=== PATIENT | female | born 2005 | race Caucasian/White ===

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

== ENCOUNTER 2023-06-19 18:34 | Emergency (ER) | payer BC ==
[~2023-06-19] VITALS: Ht 160 cm; Wt 81.8 kg
[~2023-06-19 18:34] MED LIST: MECL-231 PO
[2023-06-19 18:46] VITALS: BP 129/71; PULSE 95; RESP 16; TEMP 98.2; O2SAT 100
--- NOTE | 2023-06-19 20:02 | NUR ---
XRAY AT BS
[2023-06-19 20:20] LABS: BILIRUBIN,URINE NEGATIVE (Neg); CLARITY,URINE SLIGHTLY CLOUDY (Clear); COLOR,URINE YELLOW (Yellow); GLUCOSE, URINE NEGATIVE (Neg); KETONES,URINE NEGATIVE (Neg); LEUKOCYTE ESTERASE ,URINE MODERATE (Neg); NITRITES, URINE NEGATIVE (Neg); OCCULT BLOOD,URINE TRACE-INTACT (Neg); PH,URINE 6.5 (4.8-8.0); PROTEIN,URINE NEGATIVE (Neg); UROBILINOGEN,URINE 0.2 E.U/dL (0.2-1.0)
[2023-06-19 20:25] LABS: UA COLLECTION TYPE CLN CATCH MIDSTREAM
[2023-06-19 20:26] LABS: BACTERIA,URINE 2+ /HPF (Neg); SQUAMOUS EPITHELIAL CELL,UR MANY /LPF (FEW)
[2023-06-19 20:28] LABS: AMORPHOUS URATES 1+
[2023-06-19 20:32] LABS: BASOPHILS % (AUTO) 0.1 % (0-1); EOSINOPHILS # (AUTO) 0.1 X10'3 (0-0.9); HEMOGLOBIN 14.4 g/dl (12.0-16.0); LYMPHOCYTES # (AUTO) 3.4 X10'3 (1.1-4.8); LYMPHOCYTES % (AUTO) 32.6 % (21-51); MEAN CORPUSCULAR HEMOGLOBIN 32.5 PG (27.0-31.0); MEAN CORPUSCULAR VOLUME 92.8 FL (78-98); MEAN PLATELET VOLUME 8.9 FL (7.4-10.4); MONOCYTES % (AUTO) 9.5 % (2-12); NEUTROPHILS # (AUTO) 5.9 X10'3 (1.8-7.7); NEUTROPHILS % (AUTO) 56.8 % (42-75); PLATELET COUNT 259 X10'3 (140-440); RED BLOOD COUNT 4.42 X10'6 (4.20-5.60); RED CELL DISTRIBUTION WIDTH 12.6 % (11.5-14.5); WHITE BLOOD COUNT 10.4 X10'3 (4.5-11.0)
[2023-06-19 20:43] LABS: HCG SERUM QL NEGATIVE
[2023-06-19 20:46] LABS: ALANINE AMINOTRANSFERASE 13 U/L (12-78); ALBUMIN 3.8 G/DL (3.4-5.0); ALBUMIN/GLOBULIN RATIO 1.1 (1.1-1.5); ALKALINE PHOSPHATASE 81 IU/L (20-180); ANION GAP 10 (8-16); ASPARTATE AMINO TRANSFERASE 15 U/L (10-37); BILIRUBIN,TOTAL 0.3 MG/DL (0.1-1.0); BLOOD UREA NITROGEN 14 MG/DL (7-18); BUN/CREATININE RATIO 17.3 (10.0-20.0); CHLORIDE 104 MMOL/L (99-107); CREATININE 0.81 MG/DL (0.40-0.90); GLUCOSE 103 MG/DL (70-104); POTASSIUM 3.7 MMOL/L (3.5-5.1); SODIUM 139 MMOL/L (135-145); TOTAL CARBON DIOXIDE 25.3 MMOL/L (24-32); TOTAL PROTEIN 7.3 G/DL (6.4-8.2); eCRCL 92 ML/MIN; eGFR > 90 ML/MIN
[2023-06-19 20:55] LABS: THYROID STIMULATING HORMONE 3.98 ulU/ml (0.34-4.50)
[2023-06-19] MEDS ORDERED: NITR100C6 PO (21:07)
[2023-06-19] MEDS ORDERED: LORA-268 PO (21:25)
== END 2023-06-19 21:28 | disposition home or self-care (01) ==
LOC: ER 18:35
DX: N39.0 Urinary tract infection, site not specified (principal); F41.9 Anxiety disorder, unspecified; Z79.899 Other long term (current) drug therapy
CPT/HCPCS: 36415; 71045; 80053; 81001; 84443; 84703; 85025; 99284

== ENCOUNTER 2023-08-30 15:31 | Emergency (ER) | payer BC ==
[~2023-08-30] VITALS: Ht 160 cm; Wt 87.5 kg
[~2023-08-30 15:31] MED LIST changes: +LORA-268 PO; +NITR100C6 PO
--- NOTE | 2023-08-30 15:52 | NUR ---
MSE COMPLETED BY YANNI PAK
[2023-08-30 16:28] LABS: BASOPHILS % (AUTO) 0.2 % (0-1); EOSINOPHILS # (AUTO) 0.1 X10'3 (0-0.9); EOSINOPHILS % (AUTO) 0.9 % (0-6); HEMATOCRIT 43.9 % (35.0-45.0); HEMOGLOBIN 15.2 g/dl (12.0-16.0); LYMPHOCYTES # (AUTO) 3.1 X10'3 (1.1-4.8); LYMPHOCYTES % (AUTO) 28.4 % (21-51); MEAN CORPUSCULAR HEMOGLOBIN 32.4 PG (27.0-31.0); MEAN CORPUSCULAR HGB CONC 34.7 g/dL (33.0-36.5); MEAN CORPUSCULAR VOLUME 93.4 FL (78-98); MEAN PLATELET VOLUME 8.9 FL (7.4-10.4); MONOCYTES # (AUTO) 0.9 X10'3 (0-0.9); MONOCYTES % (AUTO) 8.5 % (2-12); NEUTROPHILS # (AUTO) 6.7 X10'3 (1.8-7.7); PLATELET COUNT 308 X10'3 (140-440); RED CELL DISTRIBUTION WIDTH 12.4 % (11.5-14.5); WHITE BLOOD COUNT 10.7 X10'3 (4.5-11.0)
[2023-08-30 16:35] LABS: ALANINE AMINOTRANSFERASE 43 U/L (12-78); ALBUMIN/GLOBULIN RATIO 1.1 (1.1-1.5); ALKALINE PHOSPHATASE 102 IU/L (20-180); ANION GAP 11 (8-16); ASPARTATE AMINO TRANSFERASE 28 U/L (10-37); BILIRUBIN,TOTAL 0.3 MG/DL (0.1-1.0); BLOOD UREA NITROGEN 14 MG/DL (7-18); BUN/CREATININE RATIO 18.9 (10.0-20.0); CALCIUM 9.5 MG/DL (8.5-10.1); CHLORIDE 101 MMOL/L (99-107); CREATININE 0.74 MG/DL (0.40-0.90); GLUCOSE 100 MG/DL (70-104); POTASSIUM 3.6 MMOL/L (3.5-5.1); SODIUM 138 MMOL/L (135-145); TOTAL CARBON DIOXIDE 25.9 MMOL/L (24-32); TOTAL PROTEIN 7.8 G/DL (6.4-8.2); eCRCL 101 ML/MIN; eGFR > 90 ML/MIN
[2023-08-30 16:41] LABS: BILIRUBIN,URINE NEGATIVE (Neg); CLARITY,URINE CLOUDY (Clear); COLOR,URINE YELLOW (Yellow); GLUCOSE, URINE NEGATIVE (Neg); KETONES,URINE NEGATIVE (Neg); LEUKOCYTE ESTERASE ,URINE SMALL (Neg); NITRITES, URINE NEGATIVE (Neg); OCCULT BLOOD,URINE NEGATIVE (Neg); PROTEIN,URINE NEGATIVE (Neg); UROBILINOGEN,URINE 0.2 E.U/dL (0.2-1.0)
[2023-08-30 16:43] LABS: ETHANOL < 10 MG/DL (<10); THYROID STIMULATING HORMONE 2.09 ulU/ml (0.34-4.50)
[2023-08-30 16:44] LABS: URINE HCG NEGATIVE (NEG)
[2023-08-30 16:51] LABS: UA COLLECTION TYPE CLN CATCH MIDSTREAM
[2023-08-30 16:55] LABS: URINE AMPHETAMINE SCREEN NEGATIVE (Neg); URINE BARBITUATE SCREEN NEGATIVE (Neg); URINE BENZODIAZEPINES SCREEN NEGATIVE (Neg); URINE CANNABINOID SCREEN NEGATIVE (Neg); URINE COCAINE SCREEN NEGATIVE (Neg); URINE METHADONE SCREEN NEGATIVE (Neg); URINE OPIATE SCREEN NEGATIVE (Neg); URINE PHENCYCLIDINE SCREEN NEGATIVE (Neg)
[2023-08-30 17:18] VITALS: BP 118/80; PULSE 86; TEMP 98.8; O2SAT 100
[2023-08-30 17:18] LABS: SQUAMOUS EPITHELIAL CELL,UR MANY /LPF (FEW)
[2023-08-30 17:19] LABS: BACTERIA,URINE 2+ /HPF (Neg); RBC,URINE 0-2 /HPF (0-2); WBC,URINE 30-50 /HPF (0-4)
--- NOTE | 2023-08-30 17:40 | NUR ---
Pt. ambulated over from the main ER accompanied by staff and her mother. Pt. is changing into green scrubs at this time. Mother is at bedside.
--- NOTE | 2023-08-30 18:43 | NUR ---
Pt. ambulated to the main ER accompanied by staff.
--- NOTE | 2023-08-30 21:43 | NUR ---
WATER PROVIDED FOR PT, MOTHER REMAINS AT BS
[2023-08-30 22:31] VITALS: RESP 18
[2023-08-30] MEDS: cephalexin 250mg capsule PO SCH (23:16)
--- NOTE | 2023-08-31 04:42 | NUR ---
I have reviewed and agree with all interventions, assessments performed and documented by ELICEO Mendoza.
--- NOTE | 2023-08-31 06:30 | NUR ---
Patient sleeping. Mother at bedside. No s/sx of distress.
--- NOTE | 2023-08-31 07:29 | NUR ---
[facility] P[facility] FAXED.
[2023-08-31] MEDS: cephalexin 250mg capsule PO SCH (08:19)
--- NOTE | 2023-08-31 09:46 | NUR ---
Mother continues to sit at bedside with patient who is napping.
--- NOTE | 2023-08-31 10:09 | NUR ---
Patient being interviewed by [facility].
[2023-08-31] MEDS ORDERED: CEPH-585 PO (10:31)
== END 2023-08-31 10:48 | disposition still patient (30) ==
LOC: ER 15:32
DX: R45.851 Suicidal ideations (principal); Z20.822 Contact with and (suspected) exposure to COVID-19; N39.0 Urinary tract infection, site not specified
CPT/HCPCS: 36415; 80053; 80305; 80320; 81001; 81025; 84443; 85025; 87811; 99285